=== PATIENT | female | born 1980 | race African-American/Black ===

== ENCOUNTER 2023-03-25 01:27 | Emergency (ER) | payer MEDICAID ==
[~2023-03-25] VITALS: Ht 170.2 cm; Wt 85.7 kg
[2023-03-25 01:33] VITALS: BP 151/120; RESP 20; O2SAT 100
[2023-03-25 01:45] VITALS: PULSE 86
== END 2023-03-25 06:40 | disposition left against medical advice (07) ==
LOC: ER 01:27
DX: R10.13 Epigastric pain (principal); R11.2 Nausea with vomiting, unspecified; Z53.21 Procedure and treatment not carried out due to patient leaving prior to being seen by health care provider
CPT/HCPCS: 93005